=== PATIENT | female | born 1950 | race Two or more races ===

== ENCOUNTER 2017-05-09 18:23 | Emergency (ER) | payer OTHER, MEDICAID ==
[~2017-05-09] VITALS: Ht 157.5 cm; Wt 65.8 kg
[~2017-05-09 18:23] MED LIST: AMIODARONE HCL100 MG ORAL; AMLODIPINE BESYL5 MG ORAL; DIOVAN HCT 1601 EACH ORAL; ELIQUIS5 MG PO; LOSARTAN POTASS50 MG ORAL; TENORMIN100 MG ORAL
[2017-05-09 18:57] VITALS: BP 187/92
--- NOTE | 2017-05-09 19:40 | Emergency Room Report ---
History of Present Illness General Chief Complaint: Eye Problems Present Illness Allergies: Coded Allergies: No Known Allergies (Unverified , 11/20/15) Nursing Documentation-PMH Hx Cardiac Problems: Yes - a.fib Hx Hypertension: Yes Hx Cancer: No Hx Gastrointestinal Problems: Yes Hx Neurological Problems: No Review of Systems ENT: Reports: other - subconjunctival hemorrhage Physical Exam Vital Signs Date Time Temp Pulse Resp B/P (MAP) Pulse Ox O2 Delivery O2 Flow Rate FiO2 05/09/17 18:27 98.1 84 20 209/75 99 Room Air Sp02 EP Interpretation: reviewed, normal General Appearance: no apparent distress, alert, GCS 15, non-toxic Head: normocephalic, atraumatic Eyes: bilateral eye normal inspection, bilateral eye PERRL ENT: hearing grossly normal, normal pharynx, no angioedema, normal voice, other - subconjunctival hemorrhage of right eye Neck: full range of motion, supple/symm/no masses Respiratory: chest non-tender, lungs clear, normal breath sounds, speaking full sentences Cardiovascular #1: regular rate, rhythm, no edema Cardiovascular #2: 2+ carotid (R), 2+ carotid (L), 2+ radial (R), 2+ radial (L) , 2+ dorsalis pedis (R), 2+ dorsalis pedis (L) Gastrointestinal: normal bowel sounds, non tender, soft, non-distended, no guarding, no rebound Rectal: deferred Genitourinary: normal inspection, no CVA tenderness Musculoskeletal: back normal, gait/station normal, normal range of motion, non- tender, calf tenderness Neurologic: alert, oriented x3, responsive, handbag finisher III-XII nml as tested, motor strength/tone normal, sensory intact, speech normal, no pronator Psychiatric: judgement/insight normal, memory normal, mood/affect normal, no suicidal/homicidal ideation Reflexes: 3+ bicep (R), 3+ bicep (L), 3+ tricep (R), 3+ tricep (L), 3+ knee (R) , 3+ knee (L) Skin: normal color, no rash, warm/dry, well hydrated Lymphatic: no adenopathy Medical Decision Making PA Attestation Supervising physician Dr. Lawson Diagnostic Impression: Primary Impression: Subconjunctival hemorrhage Additional Impression: Uncontrolled hypertension ER Course Patient is a 66year-old female with history of hypertension and a fib. She some subconjunctival hemorrhage on physical exam. No intervention is necessary. Patient is also found to have elevated blood pressure but is asymptomatic. No need for intervention at this time. Patient is given 0.1 mg clonidine in the ED and is discharged home with instructions to follow up with PCP for further evaluation and management. Patient understands and is agreeable as planned. Discussed case with Dr. Lawson who agreed with plan Last Vital Signs Date Time Temp Pulse Resp B/P (MAP) Pulse Ox O2 Delivery O2 Flow Rate FiO2 05/09/17 18:57 98.1 89 20 187/92 99 Room Air Status: improved Disposition: HOME, SELF-CARE Condition: Stable Referrals: NON PHYSICIAN (PCP) Patient Instructions: Subconjunctival Hemorrhage Amanda Martinez May 09, 2017 19:40
[2017-05-09 20:08] VITALS: BP 167/74
[2017-05-09 20:09] VITALS: BP 187/92
== END 2017-05-09 20:11 | disposition home or self-care (01) ==
LOC: EMR 19:23
DX: H11.31 Conjunctival hemorrhage, right eye (principal); I10 Essential (primary) hypertension; I48.91 Unspecified atrial fibrillation
CPT/HCPCS: 99283